=== PATIENT | female | born 1945 | race Caucasian/White ===

== ENCOUNTER → 2017-03-12 | Outpatient (CLI) | payer MEDICARE, OTHER ==
[~2017-03-12] MED LIST: CALCIUM600 M2 PO; MOBIC15 MG PO; PAXIL10 MG PO; WOMEN'S MULTIVI1 TAB PO
== END | disposition home or self-care (01) ==
LOC: US 12:30
DX: M10.072 Idiopathic gout, left ankle and foot (principal); I70.203 Unspecified atherosclerosis of native arteries of extremities, bilateral legs

== ENCOUNTER 2017-08-06 14:29 | Emergency (ER) | payer MEDICARE, OTHER ==
[~2017-08-06] VITALS: Ht 162.5 cm; Wt 45.4 kg
[2017-08-06 15:51] LABS: BILIRUBIN NEGATIVE (NEGATIVE); BLOOD NEGATIVE (NEGATIVE); CLARITY CLEAR (CLEAR); COLOR YELLOW (YELLOW); GLUCOSE NEGATIVE (NEGATIVE); KETONE NEGATIVE (NEGATIVE); LEUKO ESTERASE NEGATIVE (NEGATIVE); NITRITE NEGATIVE (NEGATIVE); PH 6.5 (5.0-9.0); SPECIFIC GRAVITY 1.015 (1.005-1.030); UROBILINOGEN 0.2 E.U./dl (0.2-1.0)
[2017-08-06 15:53] LABS: BASO # 0.1 10*3/uL (0.0-0.1); BASO % 0.4 % (0.0-1.0); EOS # 0.2 10*3/uL (0.0-0.4); EOS % 1.5 % (1.0-4.0); HEMATOCRIT 39.3 % (37.0-47.0); HEMOGLOBIN 13.1 g/dl (12.0-16.0); LYMPH # 3.5 10*3/uL (1.3-4.4); LYMPH % 25.5 % (27.0-41.0); MEAN CELL VOLUME 96.8 fl (81.0-99.0); MEAN CORPUSCULAR HGB 32.3 pg (27.0-31.0); MEAN CORPUSCULAR HGB CONC 33.3 g/dl (33.0-37.0); MEAN PLATELET VOLUME 8.9 fl (9.6-12.3); MONO # 1.2 10*3/uL (0.1-1.0); MONO % 8.9 % (3.0-9.0); NEUT # 8.7 10*3/uL (2.3-7.9); NEUT % 62.8 % (47.0-73.0); PLATELET COUNT AUTOMATED 268 10*3/uL (130-400); RED BLOOD COUNT 4.06 10*6/uL (4.10-5.10); RED CELL DISTRI WIDTH 13.9 % (0-14.5); WHITE BLOOD COUNT 13.9 10*3/uL (4.8-10.8)
[2017-08-06 15:58] LABS: BACTERIA 3+; RBC 0-2 rbc/hpf (0-2)
[2017-08-06 16:07] LABS: ALBUMIN 3.6 gm/dl (3.1-4.5); ALKALINE PHOSPHATASE 114 U/L (45-117); BUN 23 mg/dl (7-24); CHLORIDE 105 mmol/L (98-107); CREATININE 0.69 mg/dL (0.55-1.02); LIPASE 52 U/L (73-393); POTASSIUM 5.6 mmol/L (3.5-5.1); SGOT/AST 28 IU/L (3-35); SGPT/ALT 20 U/L (12-78); SODIUM 141 mmol/L (136-145); TOTAL PROTEIN 7.3 gm/dL (6.4-8.2)
[2017-08-06] MEDS ORDERED: NORCO 5-325 TA1 EACH PO (18:28)
== END 2017-08-06 18:32 | disposition home or self-care (01) ==
LOC: ED 14:29
PROVIDERS: Physician Assistant
DX: S30.1XXA Contusion of abdominal wall, initial encounter (principal); F17.200 Nicotine dependence, unspecified, uncomplicated; Z90.710 Acquired absence of both cervix and uterus; Z98.890 Other specified postprocedural states; Z79.899 Other long term (current) drug therapy; X58.XXXA Exposure to other specified factors, initial encounter; Y93.89 Activity, other specified; Y92.89 Other specified places as the place of occurrence of the external cause; Y99.9 Unspecified external cause status

== ENCOUNTER 2017-12-17 10:11 | Inpatient (IN) | payer MEDICARE, OTHER ==
[~2017-12-17] VITALS: Ht 162.5 cm; Wt 45.5 kg
--- NOTE | ~2017-12-17 | PR ---
[place], [place] PROGRESS NOTE NAME[id number] UNIT #: [id number] ROOM: 519 DOCTOR: CHRISTIANO HERNANDEZ MD BIRTHDATE: [birth year] DOS: 12/19/2017 SUBJECTIVE: The patient was seen today, 12/19/2017, at her bedside. No family was in attendance. She is a 72-year-old woman with a long history of cigarette abuse and documented COPD. She presented to the [facility] with worsening shortness of breath, fatigue and a nonproductive cough. Pulse oximetry was low with a saturation of 72% on room air at the time of admission. She has been managed with bronchodilators and steroids. On 12/18/2017, she did have a 4-beat run of wide complex tachycardia, followed a few seconds later by a ventricular couplet. She was asymptomatic at that time, but given her risk factors, it was felt that a cardiac assessment was appropriate. She did have an echocardiogram today, which showed hyperdynamic left ventricular function without any wall motion abnormalities. She had no significant abnormality of valve function. Today, she did develop tachycardia and was treated with metoprolol. She tolerated that well. Her heart rate now is more reasonable. PHYSICAL EXAMINATION: GENERAL: Today, she is a slender white female who is in no distress. VITAL SIGNS: Pulse is 88 and regular, blood pressure is 158/68. She is afebrile. She weighs 45.5 kg and has a body mass index is 17.2. HEENT: Normocephalic and atraumatic. Extraocular muscles are intact. Sclerae are clear. Pupils are equal, round and react to light. The oral mucosa is moist. Tongue is midline. NECK: Supple. She has no jugular distention. Carotids are full. I heard no bruits. LUNGS: Respirations were unlabored at rest. She has markedly diminished breath sounds bilaterally with a few scattered wheezes. She had no rales. She had expiratory prolongation bilaterally. She had no presacral edema or chest wall tenderness. HEART: Had a regular rhythm. She had a fourth heart sound, but no third heart sound. ABDOMEN: Soft. EXTREMITIES: Showed no edema. IMPRESSION: 1. Brief run of nonsustained ventricular tachycardia lasting 4 beats on 12/18/2017. This most likely was due to the patient's work of breathing, bronchodilators, etc. The patient shows no evidence for acute coronary syndrome. 2. Exacerbation of chronic obstructive pulmonary disease. 3. Cigarette abuse. 4. History of left subclavian surgery, most likely a repair of thoracic outlet obstruction, although those records are not currently available. PLAN: Upon further consideration, I think that beta blockers are likely not to be her best option, especially since she has a hyperdynamic left ventricle. I think that verapamil would be a better choice for her and therefore I will stop her metoprolol and place her on verapamil for blood pressure and heart rate [place], [place] PROGRESS NOTE NAME: KALPANA KILPATRICK UNIT #: [id number] ROOM: [facility] DOCTOR: DAVID MAO,CHRISTIANO BIRTHDATE: [birth year] control. If she tolerates that well overnight, then she probably could be discharged from a cardiac standpoint within the next 24 hours. I thank the hospitalist physicians for asking our advice regarding her care. CHRISTIANO HERNANDEZ MD CM:PNTRANS [id number] CHRISTIANO HERNANDEZ MD 12/19/[id number] interface
--- NOTE | ~2017-12-17 | CON ---
[place], [place] REPORT OF CONSULTATION NAME: KALPANA KILPATRICK UNIT #: [id number] ROOM: 519 DOCTOR: CHRISTIANO HERNANDEZ MD BIRTHDATE: [birth year] DOS: 12/18/2017 CHIEF COMPLAINT: Dyspnea, nonsustained ventricular tachycardia. HISTORY OF PRESENT ILLNESS: The patient is a 72-year-old woman who was seen at her bedside today, 12/18/2017, without family members present. She has a long history of cigarette abuse and has had COPD documented in the past. She presented to the [facility] with worsening shortness of breath, fatigue and a nonproductive cough, which had worsened over the last week. Her pulse oximetry at her PCP's office showed a saturation of 72% on room air. She was therefore instructed to go directly to the emergency department. In the hospital, her oxygenation has improved and she has been treated with bronchodilators and steroids. Her chest x-ray did not show any evidence for pneumonia and white count has not been significantly elevated. On the monitor today while she was up, she was noted to have a 4-beat run of wide complex tachycardia followed a few seconds later by a ventricular couplet. She was asymptomatic during that time, but given her risk factors, it was felt that a cardiac assessment was appropriate. The patient denies any history of coronary artery disease, chest pain, palpitations or syncope. Her evaluation thus far has included an electrocardiogram, which showed no acute ST changes, normal electrolytes with normal magnesium level and a normal TSH. PAST MEDICAL HISTORY: Includes 1. Long-term and ongoing cigarette abuse with obstructive lung disease. 2. Hypothyroidism. 3. History of rectus sheath hematoma. 4. Anxiety and depression. 5. Degenerative joint disease. 6. Status post cervical spine fusion. 7. History of left subclavian artery surgery. This was done many years ago. The patient is not clear on what exactly was done, but she may have had repair of a left thoracic outlet syndrome. MEDICATIONS: Prior to admission, vitamin C 500 mg daily, aspirin 81 mg daily, vitamin D 1000 units daily, estradiol 0.5 mg daily, levothyroxine 12.5 mcg daily, meloxicam 7.5 mg daily, multivitamin with minerals daily, and paroxetine 20 mg daily. ALLERGIES: She has no known drug allergies. FAMILY HISTORY: Negative for early coronary artery disease. REVIEW OF SYSTEMS: The patient denies diplopia or loss of vision. She denies focal weakness. She denies lightheadedness or syncope. She denies orthopnea or PND. She denies fevers, chills or sweats. She has had a cough, which has been nonproductive. She has had worsening dyspnea as noted above. She denies any chest pain or palpitations. She denies nausea or vomiting. She denies [place], [place] REPORT OF CONSULTATION NAME: KALPANA KILPATRICK UNIT #: [id number] ROOM: [facility] DOCTOR: CHRISTIANO HERNANDEZ MD BIRTHDATE: [birth year] hemoptysis or hematemesis. She denies change in bowel or bladder habits and denies blood in her stools or urine. She denies any skin rashes. She does note that her fingers and toes are often cyanotic. She denies any peripheral edema. She denies heat or cold intolerance and denies polydipsia. The remainder of the review of systems is negative except as noted above. SOCIAL HISTORY: The patient is . She does smoke about a pack of cigarettes a day but does not consume significant amounts of alcohol. PHYSICAL EXAMINATION: GENERAL: The patient is a slender white female who is awake, alert and oriented. VITAL SIGNS: Pulse is 110 and regular, blood pressure is 154/69. She is afebrile. She weighs 45.5 kg and has a body mass index of 17.2. HEENT: Normocephalic, atraumatic. Extraocular muscles are intact. Sclerae are clear. Pupils equal, round and react to light. The oral mucosa is moist. Tongue is midline. NECK: Supple. She has no jugular distention. Carotids are full. I heard no bruits. She has postsurgical changes in her left supraclavicular fossa. Pulses in her left arm are markedly diminished compared to the right. Fingers are cyanotic bilaterally, but especially on the left. CHEST: Respirations are unlabored at rest. She does have bibasilar dry crackles. She has no presacral edema or chest wall tenderness. CARDIOVASCULAR: Her heart has a regular rhythm with an S4 gallop, but no S3 or murmur. The PMI is not displaced. There is no precordial heave, lift or thrill. ABDOMEN: Soft and normally active without masses, organomegaly or bruits. EXTREMITIES: Showed no edema. She does have acrocyanosis. Pedal pulses are surprisingly full in the feet bilaterally and only absent in the left arm. LABORATORY DATA: I reviewed her electrocardiogram which showed no acute changes. Chest x-ray shows marked hyperaeration with depressed diaphragms and a small appearing heart. There are no infiltrates. Troponin levels are normal times 1. Hemoglobin is 13.7, white count 7200, platelet count 208,000. Sodium 139, potassium 4.0, BUN 23, creatinine 1.03, GFR estimated 53, magnesium 2.0. IMPRESSION: 1. Brief run of nonsustained ventricular tachycardia lasting 4 beats. This is likely due to patient's work of breathing, bronchodilator therapy, etc. Currently, I see no evidence for acute coronary syndrome. 2. Exacerbation of chronic obstructive pulmonary disease. 3. Cigarette abuse. 4. History of surgery on the patient's left subclavian, which most likely was repair of a thoracic outlet obstruction, although those records are not currently available. PLAN: The patient's workup thus far is negative. We will be obtaining an echocardiogram. If her left ventricular function is normal and she shows no [place], [place] REPORT OF CONSULTATION NAME: KALPANA KILPATRICK UNIT #: [id number] ROOM: [facility] DOCTOR: CHRISTIANO HERNANDEZ MD BIRTHDATE: [birth year] evidence for structural heart disease, I probably would not do any further workup at this time. We will follow her with her other physicians and continue her monitoring for the time being. I thank the hospitalist physicians for asking our advice regarding her management. CHRISTIANO HERNANDEZ MD CM:CONSTR:REPORT OF CONSULTATION 26 12/25/17 0913 interface
--- NOTE | ~2017-12-17 | EKG ---
[place], [place] ELECTROCARDIOGRAM REPORT NAME: KALPANA KILPATRICK UNIT #: [id number] ROOM: [facility] DOCTOR: REKHA FAITH MD BIRTHDATE: [birth year] DOS: 12/17/2017 TIME: 10:29 hours. Sinus tachycardia to 105 beats per minute. Left anterior hemiblock. Left ventricular hypertrophy. Poor R-wave progression is present and is likely to be due to lead misplacement since R-wave is very dominant in V4. REKHA FAITH MD CM:EKGRPT:ELECTROCARDIOGRAM REPORT 1723 09 REKHA FAITH MD
[~2017-12-17 10:11] MED LIST changes: +NORCO 5-325 TA1 EACH PO
[2017-12-17 10:52] LABS: BASO % 0.2 % (0.0-1.0); EOS # 0.1 10*3/uL (0.0-0.4); EOS % 0.7 % (1.0-4.0); HEMATOCRIT 45.6 % (37.0-47.0); HEMOGLOBIN 15.2 g/dl (12.0-16.0); LYMPH # 1.4 10*3/uL (1.3-4.4); LYMPH % 16.6 % (27.0-41.0); MEAN CELL VOLUME 96.4 fl (81.0-99.0); MEAN CORPUSCULAR HGB 32.1 pg (27.0-31.0); MEAN CORPUSCULAR HGB CONC 33.3 g/dl (33.0-37.0); MEAN PLATELET VOLUME 8.8 fl (9.6-12.3); MONO # 0.6 10*3/uL (0.1-1.0); MONO % 7.4 % (3.0-9.0); NEUT # 6.4 10*3/uL (2.3-7.9); NEUT % 74.8 % (47.0-73.0); PLATELET COUNT AUTOMATED 196 10*3/uL (130-400); RED BLOOD COUNT 4.73 10*6/uL (4.10-5.10); RED CELL DISTRI WIDTH 13.8 % (0-14.5); WHITE BLOOD COUNT 8.6 10*3/uL (4.8-10.8)
[2017-12-17 11:11] LABS: ALBUMIN 4.1 gm/dl (3.1-4.5); ALKALINE PHOSPHATASE 104 U/L (45-117); BUN 18 mg/dl (7-24); CHLORIDE 101 mmol/L (98-107); POTASSIUM 3.7 mmol/L (3.5-5.1); SGOT/AST 27 IU/L (3-35); SGPT/ALT 20 U/L (12-78); SODIUM 140 mmol/L (136-145); TOTAL PROTEIN 7.5 gm/dL (6.4-8.2); TROPONIN I < 0.015 ng/ml (<0.045)
[2017-12-17 12:31] VITALS: BP 182/79
[2017-12-17 13:12] VITALS: BP 182/87
[2017-12-17 13:38] VITALS: BP 168/87
[2017-12-17] MEDS ORDERED: MOBIC7.5 MG PO (15:31)
[2017-12-17] MEDS ORDERED: LEVO-T25 MCG PO (15:33)
[2017-12-17] MEDS ORDERED: ESTRADIOL0.5 MG PO (15:33)
[2017-12-17 16:00] VITALS: BP 120/64
[2017-12-17 20:00] VITALS: BP 170/70
[2017-12-18] VITALS: BP 123/77
[2017-12-18 07:10] LABS: BASO % 0.1 % (0.0-1.0); HEMATOCRIT 41.6 % (37.0-47.0); HEMOGLOBIN 13.7 g/dl (12.0-16.0); LYMPH % 13.4 % (27.0-41.0); MEAN CELL VOLUME 95.9 fl (81.0-99.0); MEAN CORPUSCULAR HGB 31.6 pg (27.0-31.0); MEAN CORPUSCULAR HGB CONC 32.9 g/dl (33.0-37.0); MEAN PLATELET VOLUME 9.3 fl (9.6-12.3); MONO # 0.2 10*3/uL (0.1-1.0); MONO % 2.4 % (3.0-9.0); NEUT % 83.8 % (47.0-73.0); PLATELET COUNT AUTOMATED 208 10*3/uL (130-400); RED BLOOD COUNT 4.34 10*6/uL (4.10-5.10); RED CELL DISTRI WIDTH 13.7 % (0-14.5); WHITE BLOOD COUNT 7.2 10*3/uL (4.8-10.8)
[2017-12-18 07:35] LABS: ALBUMIN 3.8 gm/dl (3.1-4.5); ALKALINE PHOSPHATASE 96 U/L (45-117); BUN 23 mg/dl (7-24); CHLORIDE 103 mmol/L (98-107); CHOLESTEROL 161 mg/dL (<200); CREATININE 1.03 mg/dL (0.55-1.02); FREE T4 0.97 ng/dl (0.76-1.46); HDL CHOLESTEROL 83 mg/dl (40-60); LDL CHOLESTEROL 71 mg/dL (9-159); PHOSPHOROUS 3.1 mg/dL (2.5-4.9); SGOT/AST 33 IU/L (3-35); SGPT/ALT 22 U/L (12-78); SODIUM 139 mmol/L (136-145); TOTAL PROTEIN 7.4 gm/dL (6.4-8.2); TRIGLYCERIDES 36 mg/dl (<150); VLDL CHOLESTEROL 7 mg/dL (6-40)
[2017-12-18 07:42] LABS: THYROID STIM HORMONE (HS) 0.773 uIU/ml (0.358-4.75)
[2017-12-18 08:00] VITALS: BP 155/78
[2017-12-18 08:06] LABS: VITAMIN D, 25-HYDROXY 53.7 ng/mL (30-100)
[2017-12-18 12:00] VITALS: BP 97/59
[2017-12-18] MEDS ORDERED: BAYER ASPIRIN C81 MG PO (13:39)
[2017-12-18] MEDS ORDERED: VITAMIN C500 M6 PO (13:40)
[2017-12-18] MEDS ORDERED: VITAMIN D31000 UNI1 PO (13:40)
[2017-12-18 14:57] VITALS: BP 160/70
[2017-12-18 16:00] VITALS: BP 147/73
[2017-12-18 20:00] VITALS: BP 154/69
[2017-12-19] VITALS: BP 143/68
[2017-12-19 06:35] LABS: BASO % 0.1 % (0.0-1.0); HEMATOCRIT 40.3 % (37.0-47.0); HEMOGLOBIN 13.7 g/dl (12.0-16.0); LYMPH % 5.9 % (27.0-41.0); MEAN CELL VOLUME 97.1 fl (81.0-99.0); MEAN PLATELET VOLUME 9.3 fl (9.6-12.3); MONO # 0.8 10*3/uL (0.1-1.0); MONO % 4.4 % (3.0-9.0); NEUT # 15.5 10*3/uL (2.3-7.9); NEUT % 89.1 % (47.0-73.0); PLATELET COUNT AUTOMATED 199 10*3/uL (130-400); RED BLOOD COUNT 4.15 10*6/uL (4.10-5.10); RED CELL DISTRI WIDTH 14.3 % (0-14.5); WHITE BLOOD COUNT 17.4 10*3/uL (4.8-10.8)
[2017-12-19 06:45] VITALS: BP 152/78
[2017-12-19 07:07] LABS: ALBUMIN 3.6 gm/dl (3.1-4.5); BUN 25 mg/dl (7-24); CHLORIDE 103 mmol/L (98-107); CREATININE 0.98 mg/dL (0.55-1.02); POTASSIUM 3.9 mmol/L (3.5-5.1); SGOT/AST 93 IU/L (3-35); SGPT/ALT 49 U/L (12-78); SODIUM 141 mmol/L (136-145)
[2017-12-19 07:09] LABS: ALKALINE PHOSPHATASE 91 U/L (45-117)
[2017-12-19 16:00] VITALS: BP 158/68
[2017-12-19 20:00] VITALS: BP 170/82
[2017-12-20] VITALS: BP 160/94
[2017-12-20 04:00] VITALS: BP 158/90
[2017-12-20 04:50] LABS: ALBUMIN 3.6 gm/dl (3.1-4.5); ALKALINE PHOSPHATASE 79 U/L (45-117); BUN 28 mg/dl (7-24); CHLORIDE 103 mmol/L (98-107); CREATININE 0.76 mg/dL (0.55-1.02); POTASSIUM 4.6 mmol/L (3.5-5.1); SGOT/AST 104 IU/L (3-35); SGPT/ALT 88 U/L (12-78); SODIUM 139 mmol/L (136-145); TOTAL PROTEIN 6.7 gm/dL (6.4-8.2)
[2017-12-20 05:57] LABS: BASO % 0.1 % (0.0-1.0); EOS % 0.3 % (1.0-4.0); HEMATOCRIT 39.9 % (37.0-47.0); HEMOGLOBIN 13.5 g/dl (12.0-16.0); LYMPH # 1.2 10*3/uL (1.3-4.4); LYMPH % 8.5 % (27.0-41.0); MEAN CELL VOLUME 97.1 fl (81.0-99.0); MEAN CORPUSCULAR HGB 32.8 pg (27.0-31.0); MEAN CORPUSCULAR HGB CONC 33.8 g/dl (33.0-37.0); MEAN PLATELET VOLUME 9.6 fl (9.6-12.3); MONO # 0.4 10*3/uL (0.1-1.0); MONO % 2.8 % (3.0-9.0); NEUT # 11.9 10*3/uL (2.3-7.9); NEUT % 87.8 % (47.0-73.0); PLATELET COUNT AUTOMATED 206 10*3/uL (130-400); RED BLOOD COUNT 4.11 10*6/uL (4.10-5.10); RED CELL DISTRI WIDTH 14.4 % (0-14.5); WHITE BLOOD COUNT 13.6 10*3/uL (4.8-10.8)
[2017-12-20 06:45] VITALS: BP 150/75
[2017-12-20 08:00] VITALS: BP 134/72; BP 150/75
[2017-12-20] MEDS ORDERED: VERAPAMIL HCL80 MG PO (11:37)
[2017-12-20 12:00] VITALS: BP 149/82
[2017-12-20] MEDS ORDERED: LEVOFLOXACIN500 MG PO (12:57)
[2017-12-20] MEDS ORDERED: PREDNISONE10 MG PO (12:57)
[2017-12-20] MEDS ORDERED: MUCINEX ER600 MG PO (12:58)
== END 2017-12-20 14:50 | disposition home or self-care (01) | DRG 189 ==
LOC: ED 10:11 → EDHOLD 12:45 → 5E 12:45
PROVIDERS: Emergency Medicine; Family Medicine; Internal Medicine; Nurse Practitioner Family
DX: J96.01 Acute respiratory failure with hypoxia (principal); I47.2 Ventricular tachycardia; J44.1 Chronic obstructive pulmonary disease with (acute) exacerbation; E03.9 Hypothyroidism, unspecified; F41.9 Anxiety disorder, unspecified; F17.210 Nicotine dependence, cigarettes, uncomplicated; R73.9 Hyperglycemia, unspecified; I10 Essential (primary) hypertension; M19.90 Unspecified osteoarthritis, unspecified site; F32.9 Major depressive disorder, single episode, unspecified; Z90.710 Acquired absence of both cervix and uterus; Z98.49 Cataract extraction status, unspecified eye; Z79.899 Other long term (current) drug therapy; Z71.6 Tobacco abuse counseling; Z79.82 Long term (current) use of aspirin

== ENCOUNTER → 2019-07-31 | Outpatient (CLI) | payer MEDICARE, OTHER ==
[~2019-07-31] MED LIST changes: +BAYER ASPIRIN C81 MG PO; +ESTRADIOL0.5 MG PO; +LEVO-T25 MCG PO; +LEVOFLOXACIN500 MG PO; +MOBIC7.5 MG PO; +MUCINEX ER600 MG PO; +PREDNISONE10 MG PO; +VERAPAMIL HCL80 MG PO; +VITAMIN C500 M6 PO; +VITAMIN D31000 UNI1 PO
== END | disposition home or self-care (01) ==
LOC: US 15:30
DX: M79.604 Pain in right leg (principal); M79.605 Pain in left leg; R60.0 Localized edema

== ENCOUNTER → 2020-07-09 | Outpatient (CLI) | payer MEDICARE, OTHER | END | disposition home or self-care (01) | LOC: RAD 14:08 | PROVIDERS: ATTEND Internal Medicine Critical Care Medicine | DX: R05 Cough (principal) ==

== ENCOUNTER 2020-12-29 16:12 | Inpatient (IN) | payer MEDICARE, OTHER ==
[~2020-12-29] VITALS: Ht 160 cm; Wt 43.3 kg
[2020-12-29 16:54] VITALS: BP 151/80
[2020-12-29 17:31] LABS: BASO % 0.4 % (0.0-1.0); EOS % 0.1 % (1.0-4.0); HEMATOCRIT 39.8 % (37.0-47.0); LYMPH # 1.4 10*3/uL (1.3-4.4); MEAN CELL VOLUME 95.9 fl (81.0-99.0); MEAN CORPUSCULAR HGB 31.8 pg (27.0-31.0); MEAN CORPUSCULAR HGB CONC 33.2 g/dl (33.0-37.0); MEAN PLATELET VOLUME 9.1 fl (9.6-12.3); MONO # 0.7 10*3/uL (0.1-1.0); MONO % 7.3 % (3.0-9.0); NEUT # 7.8 10*3/uL (2.3-7.9); PLATELET COUNT AUTOMATED 198 10*3/uL (130-400); RED BLOOD COUNT 4.15 10*6/uL (4.10-5.10); RED CELL DISTRI WIDTH 13.5 % (0-14.5)
[2020-12-29 17:42] LABS: ACT PARTIAL THROMBO TIME 27.6 SECONDS (20.0-32.1)
[2020-12-29 17:49] LABS: ALBUMIN 3.9 gm/dl (3.1-4.5); ALKALINE PHOSPHATASE 100 U/L (45-117); BUN 21 mg/dl (7-24); CHLORIDE 104 mmol/L (98-107); CREATININE 0.83 mg/dL (0.55-1.02); POTASSIUM 3.9 mmol/L (3.5-5.1); SGOT/AST 21 IU/L (3-35); SGPT/ALT 16 U/L (12-78); SODIUM 140 mmol/L (136-145); TOTAL PROTEIN 7.4 gm/dL (6.4-8.2); TROPONIN I 0.041 ng/ml (<0.045)
[2020-12-29 18:23] LABS: BILIRUBIN Negative (Negative); BLOOD Negative (Negative); CLARITY Cloudy (Clear); COLOR Yellow (Yellow); GLUCOSE Negative (Negative); KETONE Negative (Negative); LEUKO ESTERASE Negative (Negative); NITRITE Negative (Negative); UROBILINOGEN 0.2 E.U./dl (0.0-1.0)
[2020-12-29 18:37] LABS: BACTERIA TRACE; WBC 0-2 wbc/hpf (0-5)
[2020-12-29 19:30] VITALS: BP 116/86
[2020-12-29 22:30] VITALS: BP 120/81
[2020-12-30] VITALS: BP 151/76
[2020-12-30 06:26] LABS: BASO % 0.4 % (0.0-1.0); HEMATOCRIT 37.8 % (37.0-47.0); MEAN CELL VOLUME 94.3 fl (81.0-99.0); MEAN CORPUSCULAR HGB 31.4 pg (27.0-31.0); MEAN CORPUSCULAR HGB CONC 33.3 g/dl (33.0-37.0); MEAN PLATELET VOLUME 9.1 fl (9.6-12.3); MONO # 0.2 10*3/uL (0.1-1.0); MONO % 3.3 % (3.0-9.0); NEUT # 3.6 10*3/uL (2.3-7.9); NEUT % 74.9 % (47.0-73.0); PLATELET COUNT AUTOMATED 187 10*3/uL (130-400); RED BLOOD COUNT 4.01 10*6/uL (4.10-5.10); RED CELL DISTRI WIDTH 13.2 % (0-14.5); WHITE BLOOD COUNT 4.8 10*3/uL (4.8-10.8)
[2020-12-30 06:56] LABS: BUN 20 mg/dl (7-24); CHLORIDE 106 mmol/L (98-107); POTASSIUM 4.5 mmol/L (3.5-5.1); SODIUM 140 mmol/L (136-145)
[2020-12-30 07:08] LABS: CHOLESTEROL 183 mg/dL (<200); CREATININE 0.78 mg/dL (0.55-1.02); HDL CHOLESTEROL 81 mg/dl (40-60); LDL CHOLESTEROL 92 mg/dL (9-159); TRIGLYCERIDES 50 mg/dl (<150); VLDL CHOLESTEROL 10 mg/dL (6-40)
[2020-12-30 08:00] VITALS: BP 155/83
[2020-12-30 12:00] VITALS: BP 140/67
[2020-12-30 16:00] VITALS: BP 140/71
[2020-12-30 20:00] VITALS: BP 147/58
[2020-12-31] VITALS: BP 136/58
[2020-12-31 08:00] VITALS: BP 155/72
[2020-12-31] MEDS ORDERED: SYMB160 INH (09:45)
[2020-12-31] MEDS ORDERED: DOXYCYCLINE100 M3 PO (09:45)
[2020-12-31] MEDS ORDERED: PREDNISONE10 MG PO (09:45)
== END 2020-12-31 11:06 | disposition home or self-care (01) | DRG 192 ==
LOC: ED 16:12 → EDHOLD 18:08 → 5E 18:08
PROVIDERS: Emergency Medicine; Family Medicine; ADMIT Family Medicine; ATTEND Family Medicine
DX: J44.1 Chronic obstructive pulmonary disease with (acute) exacerbation (principal); E03.9 Hypothyroidism, unspecified; F41.9 Anxiety disorder, unspecified; M19.90 Unspecified osteoarthritis, unspecified site; F32.9 Major depressive disorder, single episode, unspecified; I10 Essential (primary) hypertension; F17.210 Nicotine dependence, cigarettes, uncomplicated; R54 Age-related physical debility; R73.9 Hyperglycemia, unspecified; R03.0 Elevated blood-pressure reading, without diagnosis of hypertension; Z71.6 Tobacco abuse counseling; Z90.711 Acquired absence of uterus with remaining cervical stump; Z98.49 Cataract extraction status, unspecified eye

== ENCOUNTER → 2021-02-18 | Outpatient (CLI) | payer MEDICARE, OTHER ==
[~2021-02-18] MED LIST changes: +DOXYCYCLINE100 M3 PO; +SYMB160 INH
[2021-02-18 14:53] LABS: ALKALINE PHOSPHATASE 103 U/L (45-117); BUN 20 mg/dl (7-24); CHLORIDE 107 mmol/L (98-107); CHOLESTEROL 198 mg/dL (<200); CREATININE 0.99 mg/dL (0.55-1.02); HDL CHOLESTEROL 79 mg/dl (40-60); LDL CHOLESTEROL 95 mg/dL (9-159); POTASSIUM 4.2 mmol/L (3.5-5.1); SGOT/AST 23 IU/L (3-35); SGPT/ALT 22 U/L (12-78); SODIUM 140 mmol/L (136-145); TOTAL PROTEIN 7.5 gm/dL (6.4-8.2); TRIGLYCERIDES 122 mg/dl (<150); VLDL CHOLESTEROL 24 mg/dL (6-40)
[2021-02-18 15:34] LABS: PTH INTACT 42.9 pg/mL (18.5-88.0); VITAMIN D, 25-HYDROXY 57.1 ng/mL (30-100)
== END | disposition home or self-care (01) ==
LOC: LAB 14:06
PROVIDERS: ATTEND Physician Assistant Medical
DX: E83.52 Hypercalcemia (principal); E78.49 Other hyperlipidemia; M85.80 Other specified disorders of bone density and structure, unspecified site; R73.01 Impaired fasting glucose; Z68.1 Body mass index [BMI] 19.9 or less, adult

== ENCOUNTER → 2021-03-08 | Outpatient (CLI) | payer MEDICARE, OTHER ==
[2021-03-08 15:15] LABS: ABG BASE EXCESS -1.2 mmol/L (-2.0-2.0); ARTERIAL BLOOD GAS PH 7.401 (7.35-7.45)
== END | disposition home or self-care (01) ==
LOC: LAB 14:52
PROVIDERS: ATTEND Internal Medicine Critical Care Medicine
DX: J44.9 Chronic obstructive pulmonary disease, unspecified (principal); Z68.1 Body mass index [BMI] 19.9 or less, adult; Z87.891 Personal history of nicotine dependence

== ENCOUNTER 2021-05-12 21:47 | Inpatient (IN) | payer MEDICARE, OTHER ==
[~2021-05-12] VITALS: Wt 43.3 kg
[2021-05-12 23:05] VITALS: BP 112/82
[2021-05-13 06:55] LABS: THYROID STIM HORMONE (HS) 1.65 uIU/ml (0.358-4.75)
[2021-05-13 07:15] VITALS: BP 101/64
[2021-05-13 07:16] VITALS: BP 101/64
[2021-05-13 07:18] VITALS: BP 101/64
[2021-05-13 07:56] LABS: VITAMIN D, 25-HYDROXY 78.5 ng/mL (30-100)
[2021-05-13 09:45] VITALS: BP 101/64
[2021-05-13 13:24] VITALS: BP 101/64
[2021-05-13 20:00] VITALS: BP 98/62
[2021-05-14 07:57] VITALS: BP 98/68
[2021-05-14 14:00] VITALS: BP 101/54
[2021-05-14 20:00] VITALS: BP 108/64
[2021-05-15 07:58] VITALS: BP 102/62
[2021-05-15 20:00] VITALS: BP 126/63
[2021-05-16 07:18] VITALS: BP 106/68
[2021-05-16] MEDS ORDERED: ABILIFY5 MG PO (10:05)
[2021-05-16] MEDS ORDERED: HYDROXYZINE HCL25 MG PO (10:05)
[2021-05-16] MEDS ORDERED: MIRTAZAPINE15 M2 PO (10:05)
== END 2021-05-16 17:08 | disposition home health service (06) | DRG 885 ==
LOC: 3N 21:47
PROVIDERS: Internal Medicine; ADMIT Psychiatry & Neurology Psychiatry; ATTEND Psychiatry & Neurology Psychiatry
DX: F33.2 Major depressive disorder, recurrent severe without psychotic features (principal); F41.9 Anxiety disorder, unspecified; F17.210 Nicotine dependence, cigarettes, uncomplicated; R00.0 Tachycardia, unspecified; J44.9 Chronic obstructive pulmonary disease, unspecified; E03.9 Hypothyroidism, unspecified; M19.90 Unspecified osteoarthritis, unspecified site; Z71.6 Tobacco abuse counseling; Z98.1 Arthrodesis status; Z90.711 Acquired absence of uterus with remaining cervical stump; Z98.49 Cataract extraction status, unspecified eye

== ENCOUNTER 2022-04-12 18:25 | Emergency (ER) | payer MEDICARE, OTHER ==
[~2022-04-12] VITALS: Ht 162.5 cm; Wt 46.4 kg
[~2022-04-12 18:25] MED LIST changes: +ABILIFY5 MG PO; +HYDROXYZINE HCL25 MG PO; +MIRTAZAPINE15 M2 PO
[2022-04-12 19:28] LABS: BASO % 0.3 % (0.0-1.0); EOS % 0.1 % (1.0-4.0); LYMPH # 0.8 10*3/uL (1.3-4.4); LYMPH % 4.9 % (27.0-41.0); MEAN CELL VOLUME 94.4 fl (81.0-99.0); MEAN CORPUSCULAR HGB 31.5 pg (27.0-31.0); MEAN CORPUSCULAR HGB CONC 33.3 g/dl (33.0-37.0); MEAN PLATELET VOLUME 8.8 fl (9.6-12.3); MONO # 0.8 10*3/uL (0.1-1.0); MONO % 5.3 % (3.0-9.0); NEUT # 13.8 10*3/uL (2.3-7.9); PLATELET COUNT AUTOMATED 196 10*3/uL (130-400); RED BLOOD COUNT 4.13 10*6/uL (4.10-5.10); RED CELL DISTRI WIDTH 13.5 % (0-14.5); WHITE BLOOD COUNT 15.5 10*3/uL (4.8-10.8)
[2022-04-12 19:45] LABS: ALKALINE PHOSPHATASE 77 U/L (45-117); BUN 14 mg/dl (7-24); CHLORIDE 106 mmol/L (98-107); CREATININE 0.92 mg/dL (0.55-1.02); LIPASE 25 U/L (73-393); POTASSIUM 4.1 mmol/L (3.5-5.1); SGOT/AST 31 IU/L (3-35); SGPT/ALT 16 U/L (12-78); SODIUM 138 mmol/L (136-145); TOTAL PROTEIN 6.6 gm/dL (6.4-8.2)
== END 2022-04-13 11:13 | disposition short-term general hospital (02) ==
LOC: ED 18:25
PROVIDERS: Internal Medicine
DX: I21.4 Non-ST elevation (NSTEMI) myocardial infarction (principal); Z20.822 Contact with and (suspected) exposure to COVID-19; D72.829 Elevated white blood cell count, unspecified; B34.9 Viral infection, unspecified; R79.82 Elevated C-reactive protein (CRP); F17.200 Nicotine dependence, unspecified, uncomplicated; Z90.710 Acquired absence of both cervix and uterus; Z98.890 Other specified postprocedural states; Z79.82 Long term (current) use of aspirin; Z79.899 Other long term (current) drug therapy

== ENCOUNTER 2022-04-20 13:49 | Inpatient (IN) | payer MEDICARE, OTHER ==
[~2022-04-20] VITALS: Ht 162.5 cm; Wt 53.2 kg
[2022-04-20] VITALS (10 sets, daily range): BP systolic 72–164; BP diastolic 44–88
[2022-04-20 14:19] LABS: BASO % 0.2 % (0.0-1.0); EOS # 0.1 10*3/uL (0.0-0.4); EOS % 0.5 % (1.0-4.0); HEMATOCRIT 31.1 % (37.0-47.0); LYMPH # 0.8 10*3/uL (1.3-4.4); LYMPH % 6.2 % (27.0-41.0); MEAN CELL VOLUME 96.6 fl (81.0-99.0); MEAN CORPUSCULAR HGB 31.4 pg (27.0-31.0); MEAN CORPUSCULAR HGB CONC 32.5 g/dl (33.0-37.0); MEAN PLATELET VOLUME 8.9 fl (9.6-12.3); MONO # 1.1 10*3/uL (0.1-1.0); MONO % 8.5 % (3.0-9.0); NEUT % 84.1 % (47.0-73.0); PLATELET COUNT AUTOMATED 234 10*3/uL (130-400); RED BLOOD COUNT 3.22 10*6/uL (4.10-5.10); RED CELL DISTRI WIDTH 13.4 % (0-14.5)
[2022-04-20 14:35] LABS: ACT PARTIAL THROMBO TIME 28.8 SECONDS (20.0-32.1); ALKALINE PHOSPHATASE 79 U/L (45-117); BUN 15 mg/dl (7-24); CHLORIDE 108 mmol/L (98-107); CREATININE 0.98 mg/dL (0.55-1.02); INTERNATIONAL NORM RATIO 1.1 (2.0-3.5); POTASSIUM 3.9 mmol/L (3.5-5.1); SGOT/AST 26 IU/L (3-35); SGPT/ALT 26 U/L (12-78); SODIUM 142 mmol/L (136-145); TOTAL PROTEIN 6.1 gm/dL (6.4-8.2)
[2022-04-20] MEDS ORDERED: ABILIFY2 MG PO (18:52)
[2022-04-20] MEDS ORDERED: BRILINTA90 M1 PO (18:54)
[2022-04-20] MEDS ORDERED: LOSARTAN POTASS25 M1 PO (18:54)
[2022-04-20] MEDS ORDERED: ATORVASTATIN CA40 M1 PO (18:54)
[2022-04-20] MEDS ORDERED: CARVEDILOL25 MG PO (18:55)
[2022-04-20] MEDS ORDERED: MIRTAZAPINE7.5 MG PO (18:56)
[2022-04-20] MEDS ORDERED: INGREZZA80 MG PO (18:58)
[2022-04-21] VITALS: BP 123/51
[2022-04-21 05:14] LABS: BUN 14 mg/dl (7-24); CHLORIDE 111 mmol/L (98-107); CHOLESTEROL 75 mg/dL (<200); CREATININE 0.79 mg/dL (0.55-1.02); POTASSIUM 3.5 mmol/L (3.5-5.1); SGOT/AST 21 IU/L (3-35); SGPT/ALT 22 U/L (12-78); SODIUM 143 mmol/L (136-145)
[2022-04-21 05:16] LABS: ALKALINE PHOSPHATASE 66 U/L (45-117); LDL CHOLESTEROL 16 mg/dL (9-159); TOTAL PROTEIN 5.4 gm/dL (6.4-8.2); TRIGLYCERIDES 64 mg/dl (<150)
[2022-04-21 05:22] LABS: FREE T4 1.34 ng/dl (0.76-1.46); THYROID STIM HORMONE (HS) 0.958 uIU/ml (0.358-4.75)
[2022-04-21 06:14] LABS: BASO % 0.3 % (0.0-1.0); EOS # 0.1 10*3/uL (0.0-0.4); EOS % 0.9 % (1.0-4.0); HEMATOCRIT 27.9 % (37.0-47.0); LYMPH # 1.1 10*3/uL (1.3-4.4); LYMPH % 11.3 % (27.0-41.0); MEAN CELL VOLUME 97.2 fl (81.0-99.0); MEAN CORPUSCULAR HGB 31.7 pg (27.0-31.0); MEAN CORPUSCULAR HGB CONC 32.6 g/dl (33.0-37.0); MEAN PLATELET VOLUME 9.6 fl (9.6-12.3); MONO # 0.8 10*3/uL (0.1-1.0); MONO % 8.7 % (3.0-9.0); NEUT # 7.5 10*3/uL (2.3-7.9); NEUT % 78.4 % (47.0-73.0); PLATELET COUNT AUTOMATED 219 10*3/uL (130-400); RED BLOOD COUNT 2.87 10*6/uL (4.10-5.10); RED CELL DISTRI WIDTH 13.7 % (0-14.5); WHITE BLOOD COUNT 9.6 10*3/uL (4.8-10.8)
[2022-04-21 06:55] LABS: VITAMIN D, 25-HYDROXY 61.5 ng/mL (30-100)
[2022-04-21 08:00] VITALS: BP 132/61
[2022-04-21 10:30] LABS: BILIRUBIN Negative (Negative); BLOOD Negative (Negative); CLARITY Clear (Clear); COLOR Yellow (Yellow); GLUCOSE Negative (Negative); KETONE Negative (Negative); LEUKO ESTERASE Negative (Negative); NITRITE Negative (Negative); PH 5.5 (4.5-8.0); UROBILINOGEN 0.2 E.U./dl (0.0-1.0)
[2022-04-21 10:37] LABS: BACTERIA TRACE; EPITHELIAL CELLS 0-2; HYALINE CAST 0-2
[2022-04-21 12:00] VITALS: BP 117/53
[2022-04-21 16:00] VITALS: BP 128/57
[2022-04-21 20:00] VITALS: BP 140/62
[2022-04-22] VITALS: BP 141/72
[2022-04-22 06:07] LABS: BUN 14 mg/dl (7-24); CHLORIDE 112 mmol/L (98-107); CREATININE 0.83 mg/dL (0.55-1.02); POTASSIUM 3.6 mmol/L (3.5-5.1); SODIUM 142 mmol/L (136-145)
[2022-04-22 06:08] LABS: BASO % 0.3 % (0.0-1.0); EOS # 0.2 10*3/uL (0.0-0.4); EOS % 2.1 % (1.0-4.0); HEMATOCRIT 28.2 % (37.0-47.0); LYMPH # 1.3 10*3/uL (1.3-4.4); LYMPH % 14.1 % (27.0-41.0); MEAN CELL VOLUME 97.6 fl (81.0-99.0); MEAN CORPUSCULAR HGB 31.5 pg (27.0-31.0); MEAN CORPUSCULAR HGB CONC 32.3 g/dl (33.0-37.0); MEAN PLATELET VOLUME 9.3 fl (9.6-12.3); MONO # 0.9 10*3/uL (0.1-1.0); MONO % 9.6 % (3.0-9.0); NEUT # 6.5 10*3/uL (2.3-7.9); NEUT % 73.2 % (47.0-73.0); PLATELET COUNT AUTOMATED 232 10*3/uL (130-400); RED BLOOD COUNT 2.89 10*6/uL (4.10-5.10); RED CELL DISTRI WIDTH 13.6 % (0-14.5); WHITE BLOOD COUNT 8.9 10*3/uL (4.8-10.8)
[2022-04-22 08:00] VITALS: BP 157/78
[2022-04-22 12:00] VITALS: BP 142/67
[2022-04-22 16:00] VITALS: BP 145/69
[2022-04-22 20:00] VITALS: BP 140/63
[2022-04-23] VITALS: BP 142/64
[2022-04-23 08:00] VITALS: BP 158/78
[2022-04-23] MEDS ORDERED: ZITHROMAX250 MG PO (11:40)
[2022-04-23] MEDS ORDERED: MUCINEX1200 M1 PO (11:40)
[2022-04-23 12:00] VITALS: BP 118/53
[2022-04-23 16:00] VITALS: BP 127/54
[2022-04-23 20:00] VITALS: BP 145/66
[2022-04-24] VITALS: BP 137/55
[2022-04-24 08:00] VITALS: BP 159/74
[2022-04-24 12:00] VITALS: BP 156/72
[2022-04-24 16:00] VITALS: BP 158/66
[2022-04-24 20:00] VITALS: BP 151/69
[2022-04-25] VITALS: BP 152/70
[2022-04-25 08:00] VITALS: BP 99/72
[2022-04-25 12:00] VITALS: BP 124/52
[2022-04-25] MEDS ORDERED: DOXYCYCLINE HY100 M3 PO (14:19)
[2022-04-25] MEDS ORDERED: OXYGEN NAS (14:23)
[2022-04-25 16:00] VITALS: BP 138/61
== END 2022-04-25 17:05 | DRG 871 ==
LOC: ED 13:49 → EDHOLD 15:53 → 4E 15:53
PROVIDERS: Emergency Medicine; Internal Medicine; ADMIT Family Medicine; ATTEND Family Medicine
DX: A41.9 Sepsis, unspecified organism (principal); J96.01 Acute respiratory failure with hypoxia; J69.0 Pneumonitis due to inhalation of food and vomit; J44.0 Chronic obstructive pulmonary disease with (acute) lower respiratory infection; M19.90 Unspecified osteoarthritis, unspecified site; F41.9 Anxiety disorder, unspecified; F32.9 Major depressive disorder, single episode, unspecified; I25.10 Atherosclerotic heart disease of native coronary artery without angina pectoris; R65.20 Severe sepsis without septic shock; F32.A Depression, unspecified; E03.9 Hypothyroidism, unspecified; R73.9 Hyperglycemia, unspecified; Z20.822 Contact with and (suspected) exposure to COVID-19; I25.2 Old myocardial infarction; Z95.5 Presence of coronary angioplasty implant and graft; Z90.711 Acquired absence of uterus with remaining cervical stump; Z98.49 Cataract extraction status, unspecified eye; Z87.891 Personal history of nicotine dependence

== ENCOUNTER → 2023-07-03 | Outpatient (CLI) | payer MEDICARE, OTHER ==
[~2023-07-03] MED LIST changes: +ABILIFY2 MG PO; +ATORVASTATIN CA40 M1 PO; +BRILINTA90 M1 PO; +CARVEDILOL25 MG PO; +DOXYCYCLINE HY100 M3 PO; +INGREZZA80 MG PO; +LOSARTAN POTASS25 M1 PO; +MIRTAZAPINE7.5 MG PO; +MUCINEX1200 M1 PO; +OXYGEN NAS; +ZITHROMAX250 MG PO
== END | disposition home or self-care (01) ==
LOC: RAD/SH 06-21 09:00
PROVIDERS: ATTEND Internal Medicine
DX: R13.12 Dysphagia, oropharyngeal phase (principal)